=== PATIENT | female | born 1995 | race Caucasian/White ===

== ENCOUNTER 2021-09-03 13:35 | Inpatient (IN) | payer BC ==
[~2021-09-03 13:35] MED LIST: Bupivacaine 0.25% HCL 30 ML VIAL ONE
[2021-09-03] MEDS ORDERED: Ondansetron PF 4 MG/2 ML Vial IVP PRN ×2 (13:56→18:05)
[2021-09-03] MEDS ORDERED: hydrALAZINE 20 MG/ML VIAL SLOW IVP PRN (13:56)
[2021-09-03] MEDS ORDERED: Promethazine HCl 25 MG/ML VIAL IM PRN ×2 (13:56→18:05)
[2021-09-03] MEDS ORDERED: Lidocaine 1% (PF) 30 ML VIAL SC PRN ×2 (13:57→14:22)
[2021-09-03] MEDS ORDERED: NS w/ Oxytocin 30 units 500 ML IV SCH ×2 (14:00→14:30)
[2021-09-03] MEDS ORDERED: Ibuprofen 800 MG TAB PO PRN (14:22)
[2021-09-03] MEDS ORDERED: HYDROcodone/Acetaminophen 5/325 mg Tablet PO PRN (14:22)
[2021-09-03] MEDS ORDERED: Labetalol HCl 100 MG/20 ML VIAL SLOW IVP PRN (14:27)
[2021-09-03 15:04] VITALS: BMI 32.1
[2021-09-03 16:13] LABS: #Eosinphils 0.1 10x3/uL (0.0-0.5); #Monocytes 0.7 10x3/uL (0.0-1.1); #Neutrophils 8.7 10x3/uL (1.5-8.4); %Basophils 0.3 % (0.0-2.0); %Eosinophils 0.7 % (0.0-6.0); %Lymphocytes 23.1 % (18.0-47.0); %Monocytes 5.4 % (0.0-10.0); %Neutrophils 69.8 % (40.0-75.0); Hemoglobin 11.7 g/dL (12.0-15.5); Mean Corpuscular HGB CONC 34.6 g/dL (32.0-36.0); Mean Corpuscular Hemoglobin 33.3 pg (27.0-33.0); Mean Corpuscular Volume 96.3 fl (81.6-98.3); Mean Platelet Volume 9.1 fl (7.4-10.4); Platelet Count 310 10x3/uL (150-450); RBC Distribution Width 12.1 % (11.5-14.5); Red Blood Cell (RBC) Count 3.51 10x6/uL (3.90-5.03); White Blood Cell (WBC) Count 12.5 10x3/uL (3.5-10.5)
[2021-09-03 16:19] LABS: ALT (SGPT) 15 U/L (8-55); AST (SGOT) 24 U/L (5-34); Albumin 3.5 g/dL (3.5-5.0); Alkaline Phosphatase 145 U/L (40-110); Anion Gap 14 mmol/L (10-20); BUN (Urea Nitrogen) 8 mg/dL (7.0-18.7); Bilirubin, Total 0.3 mg/dL (0.2-1.2); Calc. Creatinine Clearance 183 mL/min (70-130); Calcium 8.7 mg/dL (7.8-10.44); Carbon Dioxide 18 mmol/L (22-29); Chloride 110 mmol/L (98-107); Globulin 2.5 g/dL (2.4-3.5); Glucose 77 mg/dL (70-105); Potassium 3.9 mmol/L (3.5-5.1); Sodium 138 mmol/L (136-145)
[2021-09-03 16:19] LABS: SARS-CoV-2 NAA Rapid Test Not Detected (NotDetected)
[2021-09-03 16:39] LABS: Hep B Surf Ag Non-Reactive S/CO (NonReactive)
[2021-09-03 16:40] LABS: Syphilis Antibody Nonreactive (Nonreactive); Syphilis Antibody Index 0.02 S/CO (<1.00 Non-Reactive)
[2021-09-03 16:48] LABS: HBSAg Index 0.22 S/CO (0-0.99)
[2021-09-03] MEDS ORDERED: Fentanyl 2 mcg/Bup 0.1% Cadd 100 ML ONE (17:28)
[2021-09-03] MEDS ORDERED: Hydrocerin (Eucerin) Cream 120 gm Jar TOP PRN (18:05)
[2021-09-03] MEDS ORDERED: Lactated Ringer's 500 ML IV PRN (18:05)
[2021-09-03] MEDS ORDERED: diphenhydrAMINE 50 MG/ML VIAL IVP PRN (18:05)
[2021-09-03] MEDS ORDERED: Naloxone HCl 0.4 mg/ml Vial IVP PRN ×2 (18:05)
[2021-09-03] MEDS ORDERED: ePHEDrine Sulfate 50 MG/10 ML VIAL SLOW IVP PRN (18:05)
[2021-09-03] MEDS ORDERED: Acetaminophen 325 MG TAB PO PRN (18:05)
[2021-09-03] MEDS ORDERED: Communication Order-Pharmacy FS SCH (18:15)
[2021-09-03] MEDS ORDERED: Fentanyl 2 mcg/Bupivacaine 0.1% Cassette 100 ML EPIDURAL SCH (18:15)
[2021-09-03] MEDS: Lactated Ringer's 1,000 ML IV SCH ×2 (18:40→20:25)
[2021-09-04] MEDS ORDERED: hydrALAZINE 20 MG/ML VIAL SLOW IVP PRN (03:31)
[2021-09-04] MEDS ORDERED: Benzocaine-Menthol 82.5 ML CAN TOP PRN (03:31)
[2021-09-04] MEDS ORDERED: Promethazine HCl 25 MG/ML VIAL IM PRN (03:31)
[2021-09-04] MEDS ORDERED: Milk Of Magnesia 30 ML UDCUP PO PRN (03:31)
[2021-09-04] MEDS ORDERED: Preparation H Ointment 28 GM TUBE PR PRN (03:31)
[2021-09-04] MEDS ORDERED: diphenhydrAMINE 25 MG CAP PO PRN (03:31)
[2021-09-04] MEDS ORDERED: Bisacodyl 10 MG SUPP PR PRN (03:31)
[2021-09-04] MEDS ORDERED: Boostrix 0.5 ML (Tdap) VIAL IM ONE (03:31)
[2021-09-04] MEDS ORDERED: HYDROcodone/Acetaminophen 5/325 mg Tablet PO PRN ×2 (03:31)
[2021-09-04] MEDS ORDERED: Lanolin Ointment 7 GM TUBE TOP PRN (03:31)
[2021-09-04] MEDS ORDERED: Ondansetron PF 4 MG/2 ML Vial IVP PRN (03:31)
[2021-09-04] MEDS: Ibuprofen 800 MG TAB PO SCH ×3 (07:35→20:38)
[2021-09-04] MEDS: Ferrous Sulfate 325 MG TAB PO SCH ×2 (07:51→17:56)
[2021-09-04] MEDS: Docusate Calcium (SURFAK) 240 MG CAP PO SCH ×2 (08:42→20:39)
[2021-09-04] MEDS: Prenatal Vitamin 1 TAB PO SCH (08:42)
[2021-09-05] MEDS: Ibuprofen 800 MG TAB PO SCH ×3 (05:48→20:47)
[2021-09-05] MEDS: Ferrous Sulfate 325 MG TAB PO SCH ×2 (07:57→15:29)
[2021-09-05] MEDS: Prenatal Vitamin 1 TAB PO SCH (08:43)
[2021-09-05] MEDS: Docusate Calcium (SURFAK) 240 MG CAP PO SCH ×2 (08:43→20:48)
[2021-09-06] MEDS: Ibuprofen 800 MG TAB PO SCH ×2 (05:28→06:46)
[2021-09-06 07:51] VITALS: BP 122/78; TEMP 98.2
[2021-09-06] MEDS: Ferrous Sulfate 325 MG TAB PO SCH (08:23)
[2021-09-06] MEDS: Prenatal Vitamin 1 TAB PO SCH (08:23)
[2021-09-06] MEDS: Docusate Calcium (SURFAK) 240 MG CAP PO SCH (08:23)
== END 2021-09-06 13:15 | disposition home or self-care (01) | DRG 807 ==
LOC: CSHLD/OP 13:35 → CSHLD 13:52 → CSHPP 09-04 03:45
PROVIDERS: ADMIT Student in an Organized Health Care Education/Training Program; ATTEND Student in an Organized Health Care Education/Training Program
PROC: 10907ZC Drainage of Amniotic Fluid, Therapeutic from Products of Conception, Via Natural or Artificial Opening (ICD-10-PCS; 2021-09-03)
PROC: 10H07YZ Insertion of Other Device into Products of Conception, Via Natural or Artificial Opening (ICD-10-PCS; 2021-09-03)
PROC: 10E0XZZ Delivery of Products of Conception, External Approach (ICD-10-PCS; principal; 2021-09-04)
DX: O13.4 Gestational [pregnancy-induced] hypertension without significant proteinuria, complicating childbirth (principal); Z37.0 Single live birth; Z3A.39 39 weeks gestation of pregnancy; Z20.822 Contact with and (suspected) exposure to COVID-19; O76 Abnormality in fetal heart rate and rhythm complicating labor and delivery; Z88.2 Allergy status to sulfonamides
CPT/HCPCS: 0240U; 36415; 51702; 80053; 82570; 84156; 86780; 86850; 86900; 86901; 87340; 99285; J1200; J2590; J7120; S0020

== ENCOUNTER 2024-09-09 11:31 | Day surgery (SDC) | payer BC, SELFPAY ==
[2024-09-09] MEDS ORDERED: hydrALAZINE 20 MG/ML VIAL SLOW IVP PRN (12:06)
[2024-09-09 12:43] LABS: Fetal Membranes Rupture No Membranes Rupture (No Rupture)
== END 2024-09-09 14:25 | disposition home or self-care (01) ==
LOC: CSHLD/OP 11:31
PROVIDERS: ATTEND Student in an Organized Health Care Education/Training Program
DX: O23.593 Infection of other part of genital tract in pregnancy, third trimester (principal); N89.8 Other specified noninflammatory disorders of vagina; O99.413 Diseases of the circulatory system complicating pregnancy, third trimester; I45.6 Pre-excitation syndrome; Z95.1 Presence of aortocoronary bypass graft; Z79.899 Other long term (current) drug therapy; Z3A.34 34 weeks gestation of pregnancy
CPT/HCPCS: 76819; 84112; 99283

== ENCOUNTER 2024-10-06 20:06 | Inpatient (IN) | payer BC, SELFPAY ==
[2024-10-06 21:02] VITALS: BMI 28.1
[2024-10-06] MEDS ORDERED: Ondansetron PF 4 MG/2 ML Vial IVP PRN (21:24)
[2024-10-06] MEDS ORDERED: hydrALAZINE 20 MG/ML VIAL SLOW IVP PRN (21:24)
[2024-10-06] MEDS ORDERED: Diphenoxylate HCl/Atropine Tablet PO PRN (21:24)
[2024-10-06] MEDS ORDERED: Zolpidem Tartrate 5 MG TAB PO PRN (21:24)
[2024-10-06] MEDS ORDERED: Acetaminophen 500 MG TAB PO PRN (21:24)
[2024-10-06] MEDS ORDERED: Carboprost 250 MCG/ML AMP IM PRN (21:24)
[2024-10-06] MEDS ORDERED: Ibuprofen 800 MG TAB PO PRN (21:24)
[2024-10-06] MEDS ORDERED: Promethazine HCl 25 MG/ML VIAL IM PRN (21:24)
[2024-10-06] MEDS ORDERED: Lidocaine 1% (PF) 30 ML VIAL SC PRN (21:24)
[2024-10-06] MEDS ORDERED: HYDROcodone/Acetaminophen 5/325 mg Tablet PO PRN (21:24)
[2024-10-06] MEDS ORDERED: Methylergonovine 0.2 MG/ML VIAL IM PRN (21:24)
[2024-10-06] MEDS ORDERED: fentaNYL 50 mcg/mL 1 mL Vial SLOW IVP PRN (21:24)
[2024-10-06] MEDS: Lactated Ringer's 1,000 ML IV SCH (21:30)
[2024-10-06] MEDS ORDERED: Oxytocin 30 units/NS 500 ML 500 ML IV SCH (21:30)
[2024-10-06 23:21] LABS: Hematocrit 35.9 % (34.9-44.5); Hemoglobin 12.5 g/dL (12.0-15.5); Mean Corpuscular HGB CONC 34.8 g/dL (32.0-36.0); Mean Corpuscular Hemoglobin 33.6 pg (27.0-33.0); Mean Corpuscular Volume 96.5 fL (81.6-98.3); Mean Platelet Volume 8.8 fL (7.4-10.4); Platelet Count 257 10x3/uL (150-450); RBC Distribution Width 11.8 % (11.5-14.5); Red Blood Cell (RBC) Count 3.72 10x6/uL (3.90-5.03); White Blood Cell (WBC) Count 9.7 10x3/uL (3.5-10.5)
[2024-10-06 23:53] LABS: Syphilis Antibody Nonreactive (Nonreactive); Syphilis Antibody Index 0.03 S/CO (<1.00 Non-Reactive)
[2024-10-06 23:54] LABS: HBsAg Index 0.14 S/CO (0-0.99); Hep B Surf Ag - L&D Non-Reactive S/CO (NonReactive)
[2024-10-07] MEDS: Oxytocin 30 units/NS 500 ML 500 ML IV SCH (05:46)
[2024-10-07] MEDS ORDERED: Promethazine HCl 25 MG/ML VIAL IM PRN (09:36)
[2024-10-07] MEDS ORDERED: Ondansetron PF 4 MG/2 ML Vial IVP PRN ×2 (09:36→17:54)
[2024-10-07] MEDS ORDERED: ePHEDrine Sulfate 50 MG/10 ML VIAL SLOW IVP PRN (09:36)
[2024-10-07] MEDS ORDERED: diphenhydrAMINE 50 MG/ML VIAL IVP PRN (09:36)
[2024-10-07] MEDS ORDERED: Lactated Ringer's 500 ML IV PRN (09:36)
[2024-10-07] MEDS ORDERED: Naloxone HCl 0.4 mg/ml Vial IVP PRN ×2 (09:36)
[2024-10-07] MEDS ORDERED: Moisturizing Cream (Eucerin) 113 GM JAR TOP PRN (09:36)
[2024-10-07] MEDS ORDERED: Acetaminophen 325 MG TAB PO PRN (09:36)
[2024-10-07] MEDS ORDERED: Communication Order-Pharmacy FS SCH (09:45)
[2024-10-07] MEDS: fentaNYL 2 mcg/Ropivacaine 0.2% Epidural 100 ML CADD EPIDURAL SCH (11:22)
[2024-10-07] MEDS ORDERED: Bisacodyl 10 MG SUPP PR PRN (17:54)
[2024-10-07] MEDS ORDERED: Preparation H Ointment 28 GM TUBE PR PRN (17:54)
[2024-10-07] MEDS ORDERED: Lanolin Ointment 7 GM TUBE TOP PRN (17:54)
[2024-10-07] MEDS ORDERED: diphenhydrAMINE 25 MG CAP PO PRN (17:54)
[2024-10-07] MEDS ORDERED: Milk Of Magnesia 30 ML UDCUP PO PRN (17:54)
[2024-10-07] MEDS ORDERED: hydrALAZINE 20 MG/ML VIAL SLOW IVP PRN (17:54)
[2024-10-07] MEDS: Misoprostol 200 MCG TAB PR PRN (18:19)
[2024-10-07] MEDS: Ondansetron PF 4 MG/2 ML Vial ONE (18:19)
[2024-10-07] MEDS: Ibuprofen 800 MG TAB PO SCH (21:21)
[2024-10-07] MEDS: Docusate 100 MG CAP PO SCH (21:21)
[2024-10-08 04:09] LABS: Hematocrit 31.6 % (34.9-44.5); Hemoglobin 11.2 g/dL (12.0-15.5)
[2024-10-08] MEDS: Ferrous Sulfate 325 MG TAB PO SCH (08:17)
[2024-10-08] MEDS: Boostrix 0.5 ML (Tdap) VIAL (>/=7 yrs of age) IM ONE (09:05)
[2024-10-08] MEDS ORDERED: HYDROcodone/Acetaminophen 5/325 mg Tablet PO PRN (10:00)
[2024-10-08 16:23] VITALS: BP 120/76; TEMP 97.6
== END 2024-10-08 18:30 | disposition home or self-care (01) | DRG 807 ==
LOC: CSHLD/OP 20:06 → CSHLD 21:19 → CSHPP 10-07 20:25
PROVIDERS: ADMIT Student in an Organized Health Care Education/Training Program; ATTEND Student in an Organized Health Care Education/Training Program
PROC: 10E0XZZ Delivery of Products of Conception, External Approach (ICD-10-PCS; principal; 2024-10-07)
PROC: 3E0S3BZ Introduction of Anesthetic Agent into Epidural Space, Percutaneous Approach (ICD-10-PCS; 2024-10-07)
DX: O80 Encounter for full-term uncomplicated delivery (principal); Z37.0 Single live birth; Z3A.38 38 weeks gestation of pregnancy
CPT/HCPCS: 36415; 85014; 85018; 85027; 86780; 86850; 86900; 86901; 87340; J2405; J2590; J7120